=== PATIENT | female | born 1995 | race Caucasian/White ===

== ENCOUNTER 2023-09-01 09:02 | Observation (INO) | payer OTHER, SELFPAY ==
[2023-09-01] VITALS (53 sets, daily range): BP systolic 109–127; BP diastolic 56–78; PULSE 63–97; RESP 14–20; TEMP 36.4–37; O2SAT 97–100; BMI 38.0
--- NOTE | 2023-09-01 09:18 | ED.NAVMDI ---
HPI - Nausea/Vomiting/Diarrhea General Chief complaint: Nausea/Vomiting/Diarrhea <Heron Painter APRN - Last Filed: 09/01/23 14:50> Stated complaint: nausea/vomiting, 15 weeks <Heron Painter APRN - Last Filed: 09/01/23 14:50> Time Seen by Provider: 09/01/23 09:04 <Heron Painter APRN - Last Filed: 09/01/23 14:50> Source: patient <Heron Painter APRN - Last Filed: 09/01/23 14:50> Mode of arrival: ambulatory <Heron Painter APRN - Last Filed: 09/01/23 14:50> Limitations: no limitations <Heron Painter APRN - Last Filed: 09/01/23 14:50> History of Present Illness HPI Narrative: Denia is a 27-year-old female patient presenting to the emergency room today with complaints of nausea and vomiting. She reports she is been recently diagnosed with hyper emesis gravidarum. She is 15 weeks . Was seen at [facility] and was given fluids and nausea medicine earlier this week. Also had a UTI was given antibiotic at that time. States that her at-home medication-B6 and Reglan is not helping her nausea/vomiting. She denies any abdominal pain, abnormal vaginal discharge, or any vaginal bleeding. G-1 P-0. LMP 05/27/23. <Heron Painter APRN - Last Filed: 09/01/23 14:50> Related Data Home medications: Home Medications Medication Instructions Recorded Confirmed docosahexaenoic acid 200 mg mg PO 08/10/23 08/10/23 capsule ( DHA) sertraline 100 mg tablet 100 mg PO DAILY 08/10/23 08/10/23 <Heron Painter APRN - Last Filed: 09/01/23 14:50> Allergies/Adverse reactions: Allergies Allergy/AdvReac Type Severity Reaction Status Date / Time No Known Allergies Allergy Verified 09/01/23 09:14 <Heron Painter APRN - Last Filed: 09/01/23 14:50> Review of Systems Review of Systems: Pertinent positives per HPI. Patient denies any fever, chills, rash, headache, visual changes, dizziness, cough, runny nose, shortness of breath, chest pain, palpitations, diarrhea, constipation, abdominal pain, or any urinary issues. <Heron Painter APRN - Last Filed: 09/01/23 14:50> [facility] Past Medical History Medical History: Medical History Anxiety <Heron Painter APRN - Last Filed: 09/01/23 14:50> Surgical History Surgical History: Surgical History History of orthopedic surgery R leg Hx of tonsillectomy <Heron Painter APRN - Last Filed: 09/01/23 14:50> Family History Family History: Family History Grandparent Breast cancer Diabetes mellitus Mother Asthma Other Depression <Heron Painter APRN - Last Filed: 09/01/23 14:50> Social History Social History: Social History Smoking status: Never smoker Alcohol intake: never Substance use: never Substance use type: does not use Do You Feel Safe in your Home?: Yes Lack of Transportation: No Lack of Food: Never True Current Housing: I Have Housing Concerned About Future Housing: No Difficulty Paying Gas/Electric Bills: No Difficulty Paying for Meds: No Currently Unemployed: No Education: Bachelor's Degree Difficulty w/ Childcare or Family Care: No Living arrangements: with family Additional living arrangements comments: 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 There is no
[2023-09-01] MEDS: SODIUM CHLORIDE 0.9% IV 1,000 ML 999 ML IV CONT ×2 (09:31→12:01)
[2023-09-01 09:32] LABS: Basophils Percent Auto 0.2 % (0.2-1.2); Hematocrit 41.7 % (37.0-47.0); Hemoglobin 14.2 g/dL (12.0-15.0); Immature Granulocyte Absolute 0.05 K/mm3 (0.00-0.031); Immature Granulocyte Percent A 0.3 % (0-0.5); Lymphocytes Absolute Auto 1.34 K/mm3 (0.9-3.2); Lymphocytes Percent Auto 6.8 % (18.3-44.2); Mean Corpuscular HGB Conc 34.1 g/dl (32-36); Mean Corpuscular Hemoglobin 29.2 pg (26-34); Mean Corpuscular Volume 85.8 fl (80-100); Mean Platelet Volume 10.7 fl (7.4-10.4); Monocytes Absolute Auto 0.6 K/mm3 (0.1-0.6); Monocytes Percent Auto 3.2 % (2.6-8.5); Neutrophils Absolute Auto 17.6 K/mm3 (1.3-6.7); Neutrophils Percent Auto 89.5 % (45.5-73.1); Platelet Count Result 389 k/mm3 (150-375); Red Blood Count 4.86 M/mm3 (4.2-5.4); Red Cell Distribution Width 13.2 % (11.5-14.5); White Blood Count 19.6 K/mm3 (4.5-10.0)
[2023-09-01] MEDS: PROMETHAZINE HCL 25 MG/ML AMPUL 12.5 MG IV PUSH ×2 (09:33→10:42)
[2023-09-01] MEDS: FAMOTIDINE 20 MG/2 ML VIAL IV PUSH (09:39)
[2023-09-01 09:42] LABS: Alanine Aminotransferase 50 U/L (6-35); Albumin Level 4.6 g/dL (3.5-5.1); Alkaline Phosphatase 105 U/L (38-126); Anion Gap 16 mmol/L (4-12); Aspartate Amino Transferase 44 U/L (14-36); Bilirubin,Total 1.2 mg/dL (0.2-1.3); Blood Urea Nitrogen 10 mg/dL (7-17); Calcium 10.1 mg/dL (8.4-10.2); Carbon Dioxide 17 mmol/L (22-30); Chloride 105 mmol/L (98-107); Estimated CRCL calculation 154 ml/min; Estimated Glomerular Filt Rate > 60; Glucose 145 mg/dL (65-110); Lipase 105 U/L (23-300); Potassium 3.5 mmol/L (3.4-5.0); Sodium 138 mmol/L (137-145)
[2023-09-01 11:00] LABS: Appearance Urine Cloudy (Clear); Bacteria Urine None Seen /hpf; Bilirubin Urine 2+ (Negative); Blood Urine Negative (Negative); Color Urine Dark Yellow (Yellow); Glucose Urine UA Negative (Negative); Ketones Urine 4+ mg/dL (Negative); Leukocyte Esterase Ur Trace LEU/UL (Negative); Need Manual Microscopic Reviewed; Nitrate Urine Negative (Negative); Protein Urine 2+ mg/dL (Negative); RBC Urine 0-2 /hpf (0-2); Squamous Epithelial Cell Urine Few /hpf (Few); WBC Urine 0-5 /hpf (0-3); pH Urine 5.5 (5.0-9.0)
[2023-09-01 11:02] LABS: Add Urine Microscopic? YES; Specific Grav Ur 1.038 (1.001-1.035)
[2023-09-01] MEDS: ACETAMINOPHEN 325 MG TABLET 650 MG PO (11:09)
[2023-09-01 11:11] LABS: Strep Group A RT-PCR NOT DETECTED (Negative)
[2023-09-01] MEDS: cefTRIAXone 2 GM/NS 100 ML 2 GM/100 ML BAG IVPB (12:08)
[2023-09-01] MEDS: FAMOTIDINE 20 MG TABLET PO (15:40)
[2023-09-01] MEDS: ceFAZolin 1 GM/NS 50 ML 1 GM/50 ML BAG IVPB (15:41)
[2023-09-01] MEDS: METOCLOPRAMIDE HCL 10 MG TABLET PO ×2 (15:46→21:54)
[2023-09-01 15:48] LABS: Appearance Urine Turbid (Clear); Bacteria Urine Rare /hpf; Bilirubin Urine 1+ (Negative); Blood Urine Negative (Negative); Color Urine Dark Yellow (Yellow); Glucose Urine UA Negative (Negative); Ketones Urine 4+ mg/dL (Negative); Leukocyte Esterase Ur Negative LEU/UL (Negative); Need Manual Microscopic Reviewed; Nitrate Urine Negative (Negative); Protein Urine 1+ mg/dL (Negative); RBC Urine 0-2 /hpf (0-2); Squamous Epithelial Cell Urine Few /hpf (Few); WBC Urine 0-5 /hpf (0-3); pH Urine 5.5 (5.0-9.0)
[2023-09-01 15:53] LABS: Add Urine Microscopic? YES; Specific Grav Ur 1.044 (1.001-1.035)
--- NOTE | 2023-09-01 16:16 | PC.NURSE ---
1321 This patient, Denia Cummings, admitted to the OB room OB Post 115 for observation. Patient/family oriented to hospital policies and general routines including ID bracelet, bed and alarms, visiting hours, pain management, procedures, bathroom and other care routines, personal items, smoking policy, room service/diet, and visiting hours. Patient/Family are encouraged to report perceived risks to care and to ask questions if they do not understand what they are told or what they should do.
[2023-09-01] MEDS: LANOLIN (LANSINOH) 7.5 GM CREAM 1 APPLIC (17:18)
[2023-09-01] MEDS: DEXTROSE 5%/LACTATED RINGERS 1,000 ML 999 ML IV CONT (17:19)
[2023-09-01] MEDS: ACETAMINOPHEN 500 MG TABLET 1000 MG PO (18:13)
--- NOTE | 2023-09-01 18:41 | PC.NURSE ---
1800- This RN received report on this patient. RN discussed plan of care with patient. Patient agrees with plan of care at this time.
--- NOTE | 2023-09-01 20:06 | PC.NURSE ---
Yaneli Ba MD at bedside to discuss plan of care with patient. MD gave orders to switch all IVP medications to PO and see how patient tolerates. Md also gave orders to have patient stay until AM.
[2023-09-01] MEDS: PHENOL/SOD PHENO SPRAY CHERRY (*BKC) 1 SPRAY MUCOUS MEM (20:23)
--- NOTE | 2023-09-01 20:30 | PC.NURSE ---
2015- Patient states she is not currently feeling nauseous and is going to try to rest.
[2023-09-01] MEDS: PROMETHAZINE HCL 25 MG TABLET PO (21:36)
--- NOTE | 2023-09-01 21:40 | PC.NURSE ---
2139-Patient had an episode of emesis.
[2023-09-01] MEDS: ONDANSETRON INJ 4 MG/2 ML VIAL IV PUSH (22:15)
--- NOTE | 2023-09-01 22:25 | PC.NURSE ---
2158-Patient had an episode of emesis.
--- NOTE | 2023-09-01 23:04 | PC.NURSE ---
RN checked on patient. Patient states her nausea is better and has not had an episode of emesis since RN gave zofran IV. Patient is going to try to rest.
[2023-09-02] VITALS (7 sets, daily range): BP systolic 113–127; BP diastolic 64–80; PULSE 70–85; TEMP 36.7–36.8; O2SAT 97–100
--- NOTE | 2023-09-02 02:12 | PC.NURSE ---
0210- Patient states she has not had any nausea or vomiting since Zofran was given at 2215. Patient states she is going to try to get some more rest.
--- NOTE | 2023-09-02 04:23 | PC.NURSE ---
0415- Patient given crackers.
[2023-09-02] MEDS: FAMOTIDINE 20 MG TABLET PO (05:15)
--- NOTE | 2023-09-02 05:19 | PC.NURSE ---
0515- Patient able to keep crackers down without feeling nauseous. Patient complains of a sore throat, RN offered PO Tylenol, pt declined. RN offered pt Chloraseptic spray.
[2023-09-02] MEDS: PROMETHAZINE HCL 25 MG TABLET PO (05:31)
--- NOTE | 2023-09-02 06:15 | PC.NURSE ---
0600- Report given to Anegl Chatman RN.
[2023-09-02] MEDS: SUCRALFATE 1 GM TABLET PO (07:51)
--- NOTE | 2023-09-02 08:27 | WPDHPUPDATE1 ---
History and Physical Update Update Date/Time: 09/02/23 08:27 A: 14 week IUP with hyperemesis P: IVF with antiemetics, will also add sucralfate History and Physical has been reviewed, including an updated exam of the patient. There are NO changes in the patient's condition. Risks, benefits, and alternatives have been discussed and questions answered. Patient agrees to proceed with procedure.
--- NOTE | 2023-09-02 08:27 | PC.NURSE ---
heart tones doppled at 0755. FHT 147.
--- NOTE | 2023-09-02 08:27 | PC.NURSE ---
Spoke with Dr. Ba on the phone at 0803. Notified MD that patient has not vomited since 2200 last night (08/31) and patient took PO sucralfate this AM and states nausea is improving and she is just tired. Verbal orders received from Dr. Ba to discharge patient to home. MD to put orders in.
--- NOTE | 2023-09-05 08:22 | P.PNOB_ITS ---
OB - Triage/Final Diagnosis Visit Information Reason for evaluation: other (hyperemesis gravidarum) Comments/Additional reasons for admission: I have assessed the risk for this patient, Denia Cummings, and determined that she would benefit from observation care. Evaluation Laboratory results: Laboratory Tests 09/01/23 09/01/23 09/01/23 09:26 10:40 15:27 WBC 19.6 H RBC 4.86 Hgb 14.2 Hct 41.7 MCV 85.8 MCH 29.2 MCHC 34.1 RDW 13.2 Plt Count 389 H MPV 10.7 H Immature Gran % (Auto) 0.3 Neut % (Auto) 89.5 H Lymph % (Auto) 6.8 L [place] % (Auto) 3.2 Eos % (Auto) 0.0 Baso % (Auto) 0.2 Lymph # (Auto) 1.34 [place] # (Auto) 0.6 Eos # (Auto) 0.0 Baso # (Auto) 0.0 Abs Immat Gran (auto) 0.05 H Absolute Neuts (auto) 17.6 H Absolute Nucleated RBC 0.000 Nucleated RBC % 0.0 Sodium 138 Potassium 3.5 Chloride 105 Carbon Dioxide 17 L Anion Gap 16 H BUN 10 Creatinine 0.60 L Estim Creat Clear Calc 154 Estimated GFR > 60 Glucose 145 H Calcium 10.1 Total Bilirubin 1.2 AST 44 H ALT 50 H Alkaline Phosphatase 105 Total Protein 8.0 Albumin 4.6 Lipase 105 Beta HCG, Quant 46469.00 Urine Color Dark yellow Dark yellow Urine Appearance Cloudy H Turbid H Urine pH 5.5 5.5 Ur Specific [place] 1.038 H 1.044 H Urine Protein 2+ H 1+ H Urine Glucose (UA) Negative Negative Urine Ketones 4+ H 4+ H Ur Blood (Man) Negative Negative Urine Nitrate Negative Negative Urine Bilirubin 2+ H 1+ H Urine Urobilinogen 1.0 1.0 Ur Leukocyte Esterase Negative Add Ur Microanalysis Reviewed Reviewed Leukocyte Esterase Rfl Trace H Urine RBC 0-2 0-2 Urine WBC 0-5 0-5 Ur Squamous Epith Cells Few Few Urine Bacteria None seen Rare Urine Casts 11-20 3-5 Group A Strep (PCR) Not detected
== END 2023-09-02 09:36 | disposition home or self-care (01) ==
LOC: ANHED 12:12 → ANHOBPP 13:22
PROVIDERS: Admitting Provider Obstetrics & Gynecology; Emergency Provider Nurse Practitioner Family; Visit Provider Obstetrics & Gynecology
DX: O21.0 Mild hyperemesis gravidarum (principal); O23.12 Infections of bladder in pregnancy, second trimester; Z3A.15 15 weeks gestation of pregnancy
CPT/HCPCS: 36415; 80053; 81001; 81025; 83690; 84702; 85025; 87651; 96361; 96365; 96375; 96376; 99285; A9270; G0378; J0690; J0696; J2405; J2550; J7030; J7121

== ENCOUNTER 2023-12-08 09:06 | Outpatient (CLI) | payer OTHER, SELFPAY ==
[2023-12-08 13:45] LABS: Basophils Absolute Auto 0.1 K/mm3 (0.0-0.1); Basophils Percent Auto 0.5 % (0.2-1.2); Eosinophils Absolute Auto 0.1 K/mm3 (0-0.3); Eosinophils Percent Auto 0.8 % (0-4.4); Hemoglobin 12.1 g/dL (12.0-15.0); Immature Granulocyte Absolute 0.05 K/mm3 (0.00-0.031); Immature Granulocyte Percent A 0.4 % (0-0.5); Lymphocytes Absolute Auto 2.44 K/mm3 (0.9-3.2); Lymphocytes Percent Auto 18.5 % (18.3-44.2); Mean Corpuscular HGB Conc 31.8 g/dl (32-36); Mean Corpuscular Hemoglobin 29.5 pg (26-34); Mean Corpuscular Volume 92.7 fl (80-100); Mean Platelet Volume 11.1 fl (7.4-10.4); Monocytes Absolute Auto 0.9 K/mm3 (0.1-0.6); Monocytes Percent Auto 6.9 % (2.6-8.5); Neutrophils Absolute Auto 9.6 K/mm3 (1.3-6.7); Neutrophils Percent Auto 72.9 % (45.5-73.1); Platelet Count Result 371 k/mm3 (150-375); White Blood Count 13.2 K/mm3 (4.5-10.0)
[2023-12-08 15:36] LABS: Rapid Plasma Reagin Non-Reactive (NonReactive)
[2023-12-08 22:05] LABS: HIV 1/2 Ab P24 Ag Result Negative (Negative)
== END 2023-12-08 09:07 | disposition home or self-care (01) ==
LOC: ANHGOSHLAB 09:08
PROVIDERS: Visit Provider Obstetrics & Gynecology
DX: Z34.90 Encounter for supervision of normal pregnancy, unspecified, unspecified trimester (principal); Z3A.00 Weeks of gestation of pregnancy not specified
CPT/HCPCS: 36415; 85025; 86592; 86703; G0432

== ENCOUNTER 2024-02-17 17:09 | Inpatient (IN) | payer OTHER, SELFPAY ==
[2024-02-17] VITALS (73 sets, daily range): BP systolic 92–149; BP diastolic 44–120; PULSE 66–137; TEMP 36.1–36.5; O2SAT 96–100; BMI 41.4
--- NOTE | 2024-02-17 17:48 | LDADM ---
This patient, Denia Cummings, was admitted to Labor/Delivery/Recovery 106 on 02/17/24 at 17:09. Plans for labor, pain management and were discussed with patient. Patient/family oriented to hospital policies and general routines including ID bracelet, bed and alarms, visiting hours, pain management, procedures, bathroom and other care routines, personal items, smoking policy, room service/diet and guest tray routines, security routines, and visiting hours. Patient/Family are encouraged to report perceived risks to care and to ask questions if they do not understand what they are told or what they should do. See OBIX for further documentation.
--- NOTE | 2024-02-17 18:17 | WPDANESEPP ---
Anes - Eval Pre Procedure Procedure: labor epidural Date/Time: 02/17/24 18:17 Surgeon: michelle Preop Diagnosis: pain during labor Pre Op Diagnosis: Labor Patient Data Age: 28 Gender: F Height: 1.7 m Weight: 120 kg Last Vital Signs Pulse 66 02/17/24 18:09 BP 123/83 02/17/24 18:09 O2 Del Method Room Air 02/17/24 17:46 Allergies Allergy/AdvReac Type Severity Reaction Status Date / Time No Known Allergies Allergy Verified 02/15/24 14:16 Home Medications Medication Instructions Recorded Confirmed Type aspirin 81 mg tablet,delayed 81 mg PO QHS #90 tabs 08/10/23 02/15/24 Rx release (Adult Aspirin Regimen) sertraline 100 mg tablet 100 mg PO DAILY 08/10/23 02/15/24 History prenat.vits,homar,khe-ftsk-flbfy 1 tablet 01/27/24 02/15/24 History Patient hx anesthesia problems: none Family hx anesthesia problems: none Results Review: All pre-operative results and documents have been reviewed as part of the pre-operative evaluation. COUNTS INCLUDE 234 BEDS AT THE [facility] Past Medical History Medical History (Updated 02/17/24 @ 18:18 by Danay Zhou CRNA) Anxiety Morbid obesity Surgical History Surgical History History of orthopedic surgery R leg Hx of tonsillectomy Family History Family History Grandparent Breast cancer Diabetes mellitus Mother Asthma Other Depression Social History Social History Smoking status: Never smoker Second hand tobacco smoke exposure: No Alcohol intake: former Substance use: never Substance use type: does not use Do You Feel Safe in your Home?: Yes Lack of Transportation: No Lack of Food: Never True Current Housing: I Do Not Have Housing Concerned About Future Housing: No Difficulty Paying Gas/Electric Bills: No Difficulty Paying for Meds: No Currently Unemployed: No Education: Bachelor's Degree Difficulty w/ Childcare or Family Care: No Living arrangements: with family Additional living arrangements comments: 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
[2024-02-17 18:30] LABS: Basophils Percent Auto 0.4 % (0.2-1.2); Eosinophils Absolute Auto 0.1 K/mm3 (0-0.3); Hematocrit 37.4 % (37.0-47.0); Hemoglobin 12.6 g/dL (12.0-15.0); Immature Granulocyte Absolute 0.02 K/mm3 (0.00-0.031); Immature Granulocyte Percent A 0.2 % (0-0.5); Lymphocytes Absolute Auto 2.44 K/mm3 (0.9-3.2); Lymphocytes Percent Auto 21.5 % (18.3-44.2); Mean Corpuscular HGB Conc 33.7 g/dl (32-36); Mean Corpuscular Hemoglobin 29.6 pg (26-34); Mean Platelet Volume 11.6 fl (7.4-10.4); Monocytes Absolute Auto 0.9 K/mm3 (0.1-0.6); Monocytes Percent Auto 7.6 % (2.6-8.5); Neutrophils Absolute Auto 7.9 K/mm3 (1.3-6.7); Neutrophils Percent Auto 69.3 % (45.5-73.1); Platelet Count Result 285 k/mm3 (150-375); Red Blood Count 4.25 M/mm3 (4.2-5.4); Red Cell Distribution Width 12.6 % (11.5-14.5); White Blood Count 11.3 K/mm3 (4.5-10.0)
[2024-02-17 19:21] LABS: HIV 1/2 Ab P24 Ag Result Negative (Negative)
[2024-02-17] MEDS: LACTATED RINGERS 1,000 ML 125 ML IV CONT ×2 (19:34→21:27)
[2024-02-17 20:57] LABS: Rapid Plasma Reagin Non-Reactive (NonReactive)
[2024-02-17] MEDS: OXYTOCIN 30 UNITS/NS 500 ML 30 UNITS/500 ML BAG IV CONT (21:54)
[2024-02-17] MEDS: ONDANSETRON INJ 4 MG/2 ML VIAL IV PUSH (23:12)
[2024-02-17] MEDS: FAMOTIDINE 20 MG/2 ML VIAL IV PUSH (23:14)
[2024-02-18] VITALS (40 sets, daily range): BP systolic 96–133; BP diastolic 53–91; PULSE 60–127; RESP 16; TEMP 36.1–36.8; O2SAT 81–100
--- NOTE | 2024-02-18 01:53 | WPDHPUPDATE1 ---
History and Physical Update Update Date/Time: 02/18/24 01:53 28 yo at 39w0d who presented after SROM at 1600 on 02/16. History and Physical has been reviewed, including an updated exam of the patient. There are NO changes in the patient's condition. Risks, benefits, and alternatives have been discussed and questions answered. Patient agrees to proceed with procedure. A/P: admit to L&D routine admission orders prenatals reviewed Rh + GBS neg expectant management, will augment with pitocin as needed
--- NOTE | 2024-02-18 01:54 | PM.OBPRVD ---
OB - Vaginal Delivery Note Procedure Delivery date: 02/18/24 Induction method: None Delivery augmentation: Pitocin Delivery monitor: External FHT and Internal Uterine Route of delivery: Episiotomy description: None Laceration Description: Perineal - 2nd Degree and Labial (left) Delivery repair: vicryl Specimen: No Quantitative Blood Loss (ml): 200 Anesthesia type: Epidural Disposition: Floor Complications: No immediate complications Narrative: Patient pushed for a spontaneous vaginal delivery. The fetus was delivered atraumatically and placed on the maternal abdomen. The cord was clamped and cut after 1 minute of life. The cord was double clamped and cut and a segment of cord was collected for cord gases. Cord blood was collected for blood type and Coomb's testing. The placenta delivered spontaneously and was noted to be intact. The perineum was inspected and a second degree laceration was noted. There was also a left labial laceration that was hemostatic. The perineal laceration was repaired with 3-0 vicryl in a running fashion. The uterus was firm and good hemostasis was noted. Baby Date of : 02/18/24 Gestational Age by Date: 39 gender: Female presentation: vertex position: Right Occiput Anterior Placenta delivery description: Spontaneous Cord Vessel Description: 3 Vessels score one minute: 9 score five minutes: 9
[2024-02-18] MEDS: OXYTOCIN 30 UNITS/NS 500 ML 30 UNITS/500 ML BAG 125 UNITS IV CONT (02:11)
[2024-02-18] MEDS: BENZOCAINE 20% AER SPR (*SP) 56 GM CAN 1 SPRAY TOPICAL (03:48)
[2024-02-18] MEDS: WITCH HAZEL 40 PADS 1 PAD TOPICAL (03:48)
--- NOTE | 2024-02-18 05:52 | OBPPTRN ---
02/18/2024 at 0503 Patient transferred to post room #288 via wheelchair. Support person and patient to unit, room, information board, rooming in, admission packet and security measures. Patient and her significant other state understanding verbalizes understanding.
[2024-02-18] MEDS: SERTRALINE HCL 50 MG TABLET 100 MG PO (06:52)
[2024-02-18] MEDS: IBUPROFEN 600 MG TABLET PO ×2 (06:53→19:00)
[2024-02-18] MEDS: MULTIVIT/MIN/PREN/FOL AC/IRON TABLET 1 TAB PO (06:53)
[2024-02-18] MEDS: DOCUSATE SODIUM 100 MG CAPSULE PO ×2 (06:53→16:47)
[2024-02-19 00:20] VITALS: BP 102/66; PULSE 76; RESP 18; TEMP 36.6; O2SAT 99
--- NOTE | 2024-02-19 07:12 | PM.OBPNVD ---
OB - PN: Subj Subjective Date/time seen: 02/19/24 07:12 Narrative: PPD#1 Denia reports doing well today. 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 Her pain is controlled. She is tolerating regular diet, voiding, passing gas, and ambulating without issues. She is breast feeding. Wanting to stay until tomorrow to work with . OB - PN: Obj Data Labs 02/17/24 17:44 OB - PN A/P Assessment and Plan (1) Normal vaginal delivery of first : Code(s): O80 - Encounter for full-term uncomplicated delivery Status: Acute Plan day: 1 Plan: routine care Comments: - PO pain meds - Regular diet - Ambulation and hydration encouraged - Continue putting baby to breast q2-3hr Time Spent With Patient Time: Total time spent is greater than 50% in coordination of care (as documented) at patient's floor/unit and/or counseling patient: Review of Systems Constitutional: Constitutional: Denies chills, Denies fever(s) and Denies headache(s) Eyes: Eyes: Denies change in vision ENT: Denies dizziness and Denies headache(s) Cardiovascular: Cardiovascular: Denies chest pain, Denies palpitations and Denies dyspnea Respiratory: Respiratory: Denies cough and Denies dyspnea Gastrointestinal: Gastrointestinal: Denies nausea and Denies vomiting Neurologic: Denies dizziness and Denies headache(s) Endocrine: Endocrine: Denies palpitations Exam Const: General: cooperative, comfortable and no acute distress Orientation/consciousness: patient oriented x3 Resp: Effort & Inspection: normal respiratory effort Auscultation: clear to auscultation bilaterally Cardio: Rate: regular rate GI: Inspection: non-distended GI Palp: No abdominal tenderness and Yes Soft to palpation Auscultation: normal bowel sounds : Other: fundus firm Skin: General skin exam: normal color Neuro: General: patient oriented x3 Extrem: General: normal to inspection Psych: Appearance: grossly normal Affect: normal affect Attitude: cooperative
--- NOTE | 2024-02-19 07:14 | WPDANLDPN2 ---
Anes-Prog Note L&D Date/Time: 02/19/24 07:14 Comfortable throughout: labor and delivery Neuraxial method: epidural Epidural/Spinal procedure site: clean & non-tender Neuro status: Neuro function grossly intact. Cardiovascular status: normal Respiratory status: normal Airway patency: baseline Mental status: baseline Post-Op hydration status: normal Vital Signs: Last Vital Signs Temp 36.6 C 02/19/24 00:20 Pulse 76 02/19/24 00:20 Resp 18 02/19/24 00:20 BP 102/66 02/19/24 00:20 Pulse Ox 99 02/19/24 00:20 O2 Del Method Room Air 02/18/24 19:44 Pain score (VAS): 05/10 Post-procedural complaints: none Patient feedback: Patient satisfied with anesthetic care.
--- NOTE | 2024-02-19 08:20 | PC.NURSE ---
Consulted with patient to assess needs related to , Dr. Fink is concerned about the percentage of baby's weight loss. Discussed with mother her successes, concerns and any questions she has. We reviewed working with the , supporting breast, protecting her nipples with an optimal deep latch, good positioning, and using the nipple shield. Encouraged understanding the benefits of skin to skin, responding to feeding cues, frequencies of feeding 8-12 times in 24 hours (approximately 2-3 hours), duration of feedings, milk production, intake/output feeding sheet and signs of adequate intake encouraging swallowing at the breast. Reviewed positioning and alignment, supporting breast, off-centered (asymmetrical latch) and leading with the chin with big, open, wide gape. Infant latched optimally to the [right] breast in [football] position with the nipple shield. Education given to the mother of how to visualize the suckling (with good rocking jaw motion) swallows (dropping of the lower jaw) and how to listen for drinking at the breast (the ka sound). The infant was [able] to maintain latch. Mother tends to allow baby to latch to the end of the shield rather that taking the whole shield in her mouth. Mom says they started with the shield due to her nipple soreness. She has bruising in several places on the areola, perhaps because baby wasn't on the nipple during several feedings. Reviewed with mom what a good latch with the shield looks like. We brought baby in very close to the breast, ensuring the chin is resting on the bottom side of the breast. Educated mom about effective feeding and how the milk ducts in the breast need to be compressed, not just the nipple. Mom responsive to education and will call at the next feeding when infant is eager. We will try to work without the shield today and continue with pumping. Dr Fink updated on the feeding assessment and that has perhaps not been effectively . Will reassess need for supplementation after subsequent feedings. Name/number on white board. Mother voiced understanding of the education shared, to call for assistance if the does not latch or if there is discomfort with . Reported to the Primary RN.
[2024-02-19 08:50] VITALS: BP 108/60; PULSE 78; RESP 18; TEMP 36.2; O2SAT 100
[2024-02-19 08:54] LABS: Hemoglobin 11.1 g/dL (12.0-15.0)
[2024-02-19] MEDS: MULTIVIT/MIN/PREN/FOL AC/IRON TABLET 1 TAB PO (09:18)
[2024-02-19] MEDS: SERTRALINE HCL 50 MG TABLET 100 MG PO (09:19)
[2024-02-19] MEDS: IBUPROFEN 600 MG TABLET PO (09:19)
[2024-02-19] MEDS: DOCUSATE SODIUM 100 MG CAPSULE PO (09:22)
--- NOTE | 2024-02-19 09:50 | PC.NURSE ---
Mother called out for feeding assistance. We were able to latch baby to the left breast, which she says is the easier side, without the shield. Baby came off a few times and we relatched, ensuring both lips were flanged out. Mom was able to visualize and hear swallows (3-4:1) and baby fed for about 13 minutes. When baby was done we reviewed signs of satisfaction, like relaxed hands and peaceful sleep, not rooting or fussing. Mom was very happy with how the feeding went and was encouraged to hear that our goal is feeding on demand, letting baby be the boss and not the clock. 8-12 feedings every 24 hours is the goal, reviewed general education with mom again and encouraged her to call at the next feeding so we can attempt to latch to the right without the shield. Mom agrees with this plan. Reported to primary RN.
--- NOTE | 2024-02-19 13:20 | PC.NURSE ---
Attempted to latch baby at 1200 and she was sleepy, so we gave her a little more time. At 1320, mom called out that baby was ready and we latched her on the right breast in football hold without the shield. We did adjust the latch and mom said it was more comfortable. Her right areola and nipple is bruised, but once we adjusted the latch mom said it wasn't painful, just tender. Baby was sucking and swallowing with some stimulation. We discussed rotating positions to reduce rubbing in the bruised areas and we will work with positioning at the next feeding. Mom is doing a great job holding her breast throughout the feeding and making a bite for baby to latch onto. We worked with a 'teacup' latch and mom knows how to pinch close to the nipple to achieve a deep latch and how to compress more breast tissue into baby's mouth while she nurses. Mom will call for further assistance as needed. Reported to primary RN.
--- NOTE | 2024-02-19 15:30 | PC.NURSE ---
Mother called out for a latch check. She had baby on the left breast in football. She had already been feeding for 15 minutes and mom said she had to wake her up a few times but that she had been consistent and mom heard swallows. We reviewed pumping, haakaa, and returning to work. book given. Baby ate for a total of 20 minutes and mom is confident to be more independent now that isn't painful and she knows what to look for when baby latches. She has her mother and significant other for support and they are very helpful and supportive of mom's goals. Baby will have a repeat weight this evening and we will discuss supplementation at that time if needed. Reported to primary RN.
--- NOTE | 2024-02-19 17:00 | PC.NURSE ---
Infant weight loss at 10% so Dr. Fink ordered formula supplementation. Encouraged mom to add in some pumping, with the Haakaa or the Medela pump, but that if baby has a really good feeding she may not need to pump after every feeding, especially if it feels too overwhelming. Encouraged dad to give the supplement feedings while mom pumps. Reviewed the [id number] routine in detail, recommending 15-20mls after each (increasing if baby isn't satisfied). Mom has appropriate questions and we discussed still feeding baby on demand, even if that is more often than every 3 hours. Mom called out again and wanted to have her latch and positioning check while she was using the cross cradle position. Baby looked good and mom states that the latch isn't painful. We measured her for the Medela flange sizing, she measures at 18-19mm, and per the Medela measuring guide she should use a 24mm flange. We discussed using the 21mm flange if too much areola is pulled into the 24mm flange. Mom has the fit handout for reference and will see what looks/feels best when she pumps next. We also discussed getting her a pump to take home and she is going to look at the Zomee and the Pump in Style to see which she would like. Mom is using the initiate program on the [employer] pumped and she is going to continue to use that through the night. We will meet again in the morning to see what baby's weight was and how feedings go tonight and we will develop a plan for going home. Patient agrees with this plan and is doing a great job of working with baby. Reported to primary RN.
[2024-02-19 21:42] VITALS: BP 114/70; PULSE 82; RESP 16; RESP 18; TEMP 37.1; O2SAT 95
--- NOTE | 2024-02-20 07:19 | P.DS_ITS ---
DS: Admitting Diagnosis Discharge Date 02/20/24 Admitting Diagnosis SROM Active Labor DS: Discharge Diagnosis Discharge Diagnosis (1) Normal vaginal delivery of first : Code(s): O80 - Encounter for full-term uncomplicated delivery Status: Acute OB - DS: Summary OB Procedures : Ultrasound OB Procedures Intrapartum: Spontaneous Vag Delivery OB Procedures: : None Peripartum Data Delivery Method: Natural Vaginal Laceration Description: Perineal - 2nd Degree and Labial (left) Episiotomy description: None complications: none [place] 1: Gender: Female Disposition of : home Status at Discharge Functional status at discharge: independent ambulation Overall status at discharge: patient is back to baseline Time Spent with Patient Time attestation: Total time spent providing and/or coordinating discharge services: Exam Const: General: cooperative, comfortable, no acute distress and obese Orientation/consciousness: patient oriented x3 Resp: Effort & Inspection: normal respiratory effort Auscultation: clear to auscultation bilaterally Cardio: Rate: regular rate GI: Inspection: non-distended GI Palp: No abdominal tenderness and Yes Soft to palpation Auscultation: normal bowel sounds : Other: fundus firm Skin: General skin exam: normal color Neuro: General: patient oriented x3 Extrem: General: normal to inspection Psych: Appearance: grossly normal Affect: normal affect Attitude: cooperative DS: Data Data Completed and Pending Labs on day of discharge: Labs from last 24 hours 02/19/24 08:46 Hgb 11.1 L Hct 34.0 L Discharge Plan Discharge Attending physician on discharge: Shakila Elias Discharging Clinician: Shakila Elias Anticipated Discharge Date/Time: 02/19/24 10:00 Patient Disposition: Home, Self-Care Activity: may shower and pelvic rest Diet: regular Patient Instructions: Vaginal Delivery (DC) Stand Alone Forms: General Discharge Information Follow-up/Referrals: Jack Cage MD [Physician] - 4 Weeks Discharge Medications: New ibuprofen 800 mg tablet 800 mg PO TID Qty: 40 0RF acetaminophen 500 mg tablet 1,000 mg PO TID Qty: 60 0RF docusate sodium [Colace] 100 mg capsule 100 mg PO BID Qty: 90 0RF Continued sertraline 100 mg tablet 100 mg PO DAILY #2 Tablet 1 tablet PO DAILY Discontinued aspirin [Adult Aspirin Regimen] 81 mg tablet,delayed release (DR/EC) 81 mg PO QHS Qty: 90 1RF Date of admission: 02/17/24 17:09 Primary Care Provider: UNKNOWN,DOCTOR Admitting Provider: Shakila Elias Attending physician on admission: Shakila Elias Condition: Stable
[2024-02-20 08:20] VITALS: BP 115/70; PULSE 67; RESP 16; TEMP 36.6; O2SAT 99
--- NOTE | 2024-02-20 08:40 | PC.NURSE ---
Consulted with patient to assess needs related to . Mother led the conversation with her?experience last night. Baby was not able to nurse from the left breast and didn't breastfeed well. This morning, she will latch and suck once or twice and then won't nurse any more. Tried to encourage mom that sometimes babies get used to the quick flow of the bottle and don't remember they have to 'work' at the breast. Offered to work with the nipple shield again if mom desires, it may assist with baby staying at the breast for a longer feeding. Mom unsure if she wants to try that again. Encouraged parents to mom on with pumping and supplementing at this feeding since baby is not able to breastfeed. Mom would like a Zomee pump through insurance. Mother works well with her infant with encouragement and education. Mom pumped up to 15ml at each session of pumping last night. Resources provided with number/name written on the communication board, and the mom/baby guide. Parents voiced understanding of information, demonstrated learning and will call if there is a request for assistance. Reported to the Primary RN.
--- NOTE | 2024-02-20 09:45 | PC.NURSE ---
Breast pump provided due to [maternal request for insurance pump]. Instructions given on cleaning, care, usage, that there should be no pain, pumping schedule for milk production, collection, and storage of human milk. Patient was assessed for correct placement, flange size (24mm), to pump for comfort and nipple stretching/stimulation for adequate milk production every 3 hours (8 times in 24 hours) 1-2 times at night. Breastmilk storage guidelines reviewed and copy given. Mother voiced understanding of the education shared along with mom/baby guide and the pump measurement, flange fit handout for additional resource information. Reported to the Primary RN.
[2024-02-20] MEDS: IBUPROFEN 600 MG TABLET PO ×2 (10:28→16:47)
[2024-02-20] MEDS: MULTIVIT/MIN/PREN/FOL AC/IRON TABLET 1 TAB PO (10:32)
[2024-02-20] MEDS: DOCUSATE SODIUM 100 MG CAPSULE PO (10:32)
--- NOTE | 2024-02-20 20:38 | PC.NURSE ---
1800 Pt D/C'd to a No Care Bed in room 288.
[2024-02-22 09:32] VITALS: BP 102/65; PULSE 64; RESP 18; TEMP 36.6; O2SAT 99
== END 2024-02-20 18:00 | disposition home or self-care (01) | DRG 807 ==
LOC: ANHLDR 17:32 → ANHOB2 02-18 05:05
PROVIDERS: Admitting Provider Student in an Organized Health Care Education/Training Program; Visit Provider Obstetrics & Gynecology
DX: O70.1 Second degree perineal laceration during delivery (principal); Z37.0 Single live birth; Z3A.39 39 weeks gestation of pregnancy
CPT/HCPCS: 36415; 85014; 85018; 85025; 86592; 86703; 86850; 86900; 86901; A9270; G0432; J2405; J2590; J7120

== ENCOUNTER 2024-04-11 08:24 | Outpatient (CLI) | payer OTHER, SELFPAY ==
--- NOTE | ~2024-04-11 | US_ITS ---
US right upper quadrant INDICATION: Epigastric pain PROCEDURE: Realtime right upper abdominal ultrasound. COMPARISON: No prior studies for comparison. FINDINGS: The pancreas is normal without focal mass or pancreatic ductal dilation. Liver echotexture is normal without focal mass or intrahepatic biliary dilatation. There is normal directional flow i n the portal vein. There are gallstones. No gallbladder wall thickening or pericholecystic fluid. Common bile duct sulma ures 2 mm. No sonographic Ramírez's sign. IMPRESSION: 1: Cholelithiasis. Reviewed, dictated and finalized at location B. RINARY VIROLOGIST IMPRESSION: 1: Cholelithiasis.
== END 2024-04-11 08:25 | disposition home or self-care (01) ==
LOC: ANHIMG 08:25
PROVIDERS: Visit Provider Obstetrics & Gynecology
DX: K80.20 Calculus of gallbladder without cholecystitis without obstruction (principal)
CPT/HCPCS: 76705

== ENCOUNTER 2024-05-24 00:42 | Day surgery (SDC) | payer OTHER, SELFPAY ==
--- NOTE | 2024-05-16 17:46 | SUR.PREOP ---
Report to the Outpatient Waiting Room, entrance under the green pavilion located off [facility], at time 11:30a.m. on date 05/24/2024. Planned Procedure Time: 1:30.? Time changes happen often and if your time is changed the preop area will call you the afternoon before. - You and your visitor will be asked to self-screen and do not enter if you have any COVID symptoms. Please call surgeon if you need to reschedule. - A mask is optional within the hospital at this time. Patients may have clear liquids (water, carbonated beverages, clear teas, apple juice) until 3 hours prior to surgery with a maximum of 20 ounces. - No food from midnight until time of surgery and no smoking. This includes no chewing gum, candy or mints. - Infants may have breast milk until 4 hours before surgery, formula 6 hours prior to surgery. - Children will be allowed to drink immediately following surgery.? If applicable, please bring a bottle or sippy cup to assist with drinking. Juice, water, soda, and popsicles are readily available.? For infants on formula, please bring formula the day of surgery.? Pacifiers are allowed. Take only the following medications with a SIP of water on the morning of surgery: Sertraline DO NOT STOP ANY OF YOUR OTHER PRESCRIPTION MEDICATIONS PRIOR TO SURGERY EXCEPT THE FOLLOWING Medications to discontinue per physician N/A Date to take last dose N/A Please no make-up, nail congolese, hairspray, perfume, deodorant, or body powder the day of surgery.? No jewelry (including any body piercings) or valuables the day of surgery, leave them at home.? Please take a shower or bath the night before, or the morning of, surgery with an antibacterial soap.? Wear comfortable, loose fitting clothing.? Children are encouraged to wear pajamas. - Jewelry must be removed prior to entering the operating room.? Rings and piercings that are not removed may be cut off. - The hospital will not accept responsibility for valuables.? - Please leave all valuables, including medications, at home the day of surgery. If you are going home after surgery, a licensed spike driver must drive you home.? - NO public transportation without another adult if you receive anesthesia. - We recommend that an adult stay with you for 24 hours following discharge. - We also recommend that you do not drive, make important decision, drink alcoholic beverages, or take any drugs that were not prescribed by your health care provider for at least 24 hours after your discharge time. For Pediatric surgeries, we recommend two adults accompany the child home. Follow any additional instructions given to you from your surgeon. Telephone instructions given to Denia Cummings and asked if any additional questions and then verbalized understanding. Patient advised to call surgeon office or pre surgery nurse liaison [phone] if any additional questions.
[2024-05-24] VITALS (9 sets, daily range): BP systolic 116–142; BP diastolic 69–101; PULSE 69–91; RESP 16–21; TEMP 36.4–36.5; O2SAT 100; BMI 42.1
--- NOTE | 2024-05-24 07:23 | P.PNAN_ITS ---
Anes - Initial Pre Proc Eval Procedure: Operation Date: 05/24/24 13:30 Proposed Procedures p Laparoscopic Cholecystectomy, Possible Open - Robbie Busch DO Date/Time: 05/24/24 07:23 Surgeon: Robbie Busch DO Pre Op Diagnosis: Symp Cholelithiasis Patient Data Age: 28 Gender: F Height: Weight: Allergies Allergy/AdvReac Type Severity Reaction Status Date / Time No Known Allergies Allergy Verified 05/16/24 17:26 Home Medications ?Medication ?Instructions ?Recorded ?Confirmed ?Type sertraline 100 mg tablet 100 mg PO DAILY 08/10/23 05/16/24 History lactic acid 1.8 %-citric ac 1 See Rx Instructions vaginal 04/11/24 05/16/24 Rx %-potassium bitartate 0.4 % .COMPLEX #60 grams vaginal gel (Phexxi) Patient hx anesthesia problems: none Family hx anesthesia problems: none Results Review: All pre-operative results and documents have been reviewed as part of the pre- operative evaluation. [facility] Past Medical History Medical History Morbid obesity Anxiety Surgical History Surgical History History of orthopedic surgery R leg Hx of tonsillectomy Family History Family History Grandparent Breast cancer Diabetes mellitus Mother Asthma Other Depression Social History Social History Smoking status: Never smoker Second hand tobacco smoke exposure: No Alcohol intake: former Substance use: never Substance use type: does not use Do You Feel Safe in your Home?: Yes Lack of Transportation: No Lack of Food: Never True Current Housing: I Do Not Have Housing Concerned About Future Housing: No Difficulty Paying Gas/Electric Bills: No Difficulty Paying for Meds: No Currently Unemployed: No Education: Bachelor's Degree Difficulty w/ Childcare or Family Care: No Living arrangements: with family Additional living arrangements comments: 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/Education: 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 Gender identity (if verbalized by the patient): Female Sexual Orientation (if Verbalized by the Patient): Straight or Heterosexual Spiritual care concerns: No Anes - Eval Final PreProcedure Day of Procedure 05/24/24 07:23 Patient weight: morbidly obese Heart: regular rate and rhythm Lungs: clear to auscultation Airway: Mallampati scale class II Neurological: alert and oriented Last oral intake: >/= 8 hours ASA classification: III Emergent: no Anesthetic plan: proceed Anesthesia type and monitoring: general ETT and standard monitoring Results Review: All pre-operative results and documents have been reviewed as part of the pre- operative evaluation. Informed Consent: The patient's anesthetic plan and its attendant risks and benefits were discussed with the patient/family/POA. Questions were solicited and answers provided to the satisfaction of the patient/family/POA.
[2024-05-24] MEDS: LACTATED RINGERS 1,000 ML 30 ML IV CONT ×2 (13:35→15:34)
[2024-05-24] MEDS: ACETAMINOPHEN 500 MG TABLET 1000 MG PO (13:38)
[2024-05-24] MEDS: KETOROLAC 15 MG/ML VIAL (*BKC) IV PUSH (13:39)
[2024-05-24 13:55] LABS: BEDSIDEPREGUCG Negative (Negative)
[2024-05-24 13:56] LABS: Alanine Aminotransferase 20 U/L (6-35); Albumin Level 4.2 g/dL (3.5-5.1); Alkaline Phosphatase 102 U/L (38-126); Amylase 67 U/L (30-110); Aspartate Amino Transferase 26 U/L (14-36); Bilirubin,Total 0.8 mg/dL (0.2-1.3); Lipase 125 U/L (23-300)
--- NOTE | 2024-05-24 14:30 | WPDHPUPDATE1 ---
History and Physical Update Update Date/Time: 05/24/24 14:30 History and Physical has been reviewed, including an updated exam of the patient. There are NO changes in the patient's condition. Risks, benefits, and alternatives have been discussed and questions answered. Patient agrees to proceed with procedure.
[2024-05-24] MEDS: ceFAZolin 3 GM/D5W 100 ML 100 ML IVPB (14:51)
[2024-05-24] MEDS: BUPIVACAINE/EPINEPHRINE 0.5% 50 ML VIAL 30 ML INFILTRATE (14:51)
--- NOTE | 2024-05-24 15:40 | W.PM.PROC2 ---
Procedure Note - Detailed Date of Procedure 05/24/24 Pre-op Diagnosis Symptomatic Cholelithiasis Post-op Diagnosis Same Procedure Performed Laparoscopic cholecystectomy Surgeon Robbie Busch, DO Anesthesia General and Local (0.5% bupivacaine) Indications This is a 28-year-old woman presents with intermittent right upper quadrant abdominal pain for the past 3 months. She noticed this shortly after delivering her baby in January. An ultrasound showed evidence of cholelithiasis. Discussions were made with the patient about treatment options and decision was made to proceed with laparoscopic cholecystectomy, possible open. Findings Laparoscopic cholecystectomy was performed. The patient had a slightly contracted and partially intrahepatic gallbladder with a few pericholecystic adhesions. There was some chronic gallbladder wall thickening. Cystic duct appeared normal in size. No other significant abnormalities were noted. The gallbladder was removed and sent to the lab for pathology. Description of Procedure Procedure as well as risks, benefits, and alternatives were discussed with patient. Written consent was obtained and placed in chart prior to procedure. The patient was brought back to surgical suite. Patient was placed in supine position on operating table. Time-out was done to confirm patient and procedure. Patient was then intubated by the anesthesia department. Abdomen was prepped and draped in sterile fashion using chlorhexidine prep. 0.5% bupivacaine with epinephrine was infiltrated at each site of incision. A 5 millimeter incision was made near the umbilicus, and a 5 millimeter Optiview trocar was advanced through the abdominal layers under direct visualization. Once inside the abdominal cavity, carbon dioxide was insufflated to create a pneumoperitoneum. The camera was inserted and the abdomen was inspected. No immediate abnormalities were identified. The patient was placed in reverse Trendelenburg position and rotated slightly to the left. An 11 millimeter incision was made in the subxiphoid region, and an 11 millimeter trocar was inserted under direct visualization. Two 5 millimeter incisions were made in the right upper quadrant, and two 5 millimeter trocars were inserted under direct visualization. The gallbladder was identified and grasped at the fundus and retracted superiorly. It was then grasped at the infundibulum retracted laterally. Careful dissection around the neck of the gallbladder was performed using blunt dissection with a [place] grasper and hook electrocautery. The cystic duct was identified, and a window was created behind it. The cystic artery was also identified and a window was created behind it. The critical view of safety was identified, visualizing the cystic duct running directly into the neck of the gallbladder, and the cystic artery running directly into the wall of the gallbladder. A 5 millimeter clip insemination worker was then used to place 2 clips proximally and 1 clip distally on both the cystic duct and cystic artery. They were then both transected using endoscopic scissors. Once safely away from the tay hepatitis, the gallbladder was dissected free from the liver bed using hook electrocautery. Hemostasis was achieved along the way. The gallbladder was removed completely and then removed through the subxiphoid port. The liver bed was then inspected. Hemostasis appeared adequate, and our clips appeared secure. The area was gently irrigated with sterile saline. No other abnormalities were seen. The patient was flattened out in bed, and 1 final inspection was made around the abdominal cavity. The subxiphoid port was removed, and a Gustavo Silvano cone was used to approximate the fascia with an 0-Vicryl simple interrupted suture. The remaining ports were then removed under direct visualization, the camera was removed, and the pneumoperitoneum was released. The skin of the incisions was approximated using 4-0 Monocryl subcuticular sutures. Exofin glue was applied on top. The patient was then awakened from anesthesia, extubated, and transferred to recovery. Estimated Blood Loss 10 Pathology Yes (Gallbladder) Complications No immediate complications Condition Stable Disposition Same day [facility] Billing Surgery - Charge Forward: Surgery Billing
[2024-05-24] MEDS: fentaNYL CITRATE INJ (*CRX) 100 MCG/2 ML VIAL 25 MCG IV PUSH ×2 (16:04→16:18)
[2024-05-24] MEDS: oxyCODONE HCL (*CRX) 5 MG TAB IR PO (16:40)
== END 2024-05-24 17:31 | disposition home or self-care (01) ==
PROVIDERS: Visit Provider Surgery
PROC: 0FT44ZZ Resection of Gallbladder, Percutaneous Endoscopic Approach (ICD-10-PCS; CPT 47562; principal; 2024-05-24 13:30)
DX: K80.10 Calculus of gallbladder with chronic cholecystitis without obstruction (principal); K66.0 Peritoneal adhesions (postprocedural) (postinfection); F41.9 Anxiety disorder, unspecified; E66.01 Morbid (severe) obesity due to excess calories; Z68.41 Body mass index [BMI] 40.0-44.9, adult; Z98.890 Other specified postprocedural states; Z80.3 Family history of malignant neoplasm of breast
CPT/HCPCS: 47562; 36415; 80076; 82150; 83690; 88304; A9270; J0690; J1100; J1885; J2003; J2250; J2405; J2704; J3010; J7120